=== PATIENT | female | born 1970 | race Caucasian/White ===

== ENCOUNTER 2016-09-15 11:52 | Day surgery (SDC) | payer BC ==
[~2016-09-15] VITALS: Ht 162.6 cm; Wt 97.8 kg
[~2016-09-15 11:52] MED LIST: HYDR-762 PO; ONDA4TAB35 PO; RTPRO5
[2016-09-15 12:47] VITALS: Ht 162.6 cm; Wt 97.8 kg
[2016-09-15] MEDS ORDERED: LORA10CA PO (13:00)
[2016-09-15] MEDS ORDERED: FLUT9.9S NASAL (13:00)
[2016-09-15] MEDS ORDERED: MIDAZOLAM 1 MG/ML 2 ML INJ ONE (13:11)
[2016-09-15] MEDS ORDERED: PROPOFOL 40 ML ONE (13:11)
[2016-09-15] MEDS ORDERED: LIDOCAINE 2% (SDV) 5 ML INJ ONE (13:11)
[2016-09-15 13:25] VITALS: BP 128/83; PULSE 83; RESP 12
[2016-09-15 14:35] VITALS: BP 123/60; PULSE 76; RESP 12
--- NOTE | 2016-09-21 08:37 | CONS ---
DATE OF ADMISSION: 09/15/2016 DATE OF CONSULTATION: TYPE OF CONSULTATION: Preoperative gastroenterology. Dear Dr. Greenwood, I thank you very much for this kind referral. HISTORY OF PRESENT ILLNESS: Ms. Greer Andrade is a 45-year-old female patient who has been referr ed to me for further evaluation of rectal bleeding. The patient has history of colon polyps. Her a ppetite has been good, and she is not losing any weight. The patient also complains of upper abdomi nal pain and chronic heartburn not responding to therapy. There is no past history of peptic ulcer disease. She is not taking any nonsteroidal anti-inflammatory agents. She is status post cholecyst ectomy. She does not have any fever, chills or jaundice. There is no history of liver disease. Sh jose a is not a hypertensive or diabetic. She does not have any heart disease. She has history of bronc hial asthma. SOCIAL HISTORY: She is a nonsmoker. She does not abuse alcohol. FAMILY HISTORY: Negative for gastrointestinal tract neoplasm. ALLERGIES: THERE IS NO HISTORY OF SIGNIFICANT DRUG ALLERGY. MEDICATION: Albuterol inhaler. PHYSICAL EXAMINATION: GENERAL: She is 5 feet 4 inches tall, and she weighs 215 pounds. HEART: Normal first and second heart sounds. LUNGS: Clear. ABDOMEN: Soft without any distention. Liver and spleen are not palpable. There are no masses. Th ere is no focal tenderness. Normal bowel sounds are heard. CENTRAL NERVOUS SYSTEM: Examination does not reveal any focal neurological deficit. IMPRESSION: 1. Rectal bleeding. 2. History of colon polyp. 3. Upper abdominal pain and chronic heartburn not responding to therapy. 4. Bronchial asthma. 5. Status post cholecystectomy. 6. Obesity. PLAN: Endoscopy and colonoscopy for further evaluation. Because of the obesity with a short, thick neck, she needs monitored anesthesia care for the procedu res. The procedures and possible complications are well explained to the patient. She understands and co nsents to the procedures. I thank you once again. With warmest personal regards, Dictated By: COLTON THOMPSON/PARMJIT Conf#: [id number] DID#: [id number]
--- NOTE | 2016-09-21 14:17 | GILP ---
DATE OF PROCEDURE: PROCEDURES: 1. Esophagogastroduodenoscopy and biopsy. 2. Colonoscopy. SURGEON: Adri Phipps MD. PREOPERATIVE DIAGNOSES: 1. Abdominal pain. 2. Chronic heartburn. 3. Rectal bleeding. 4. History of colon polyps. POSTOP DIAGNOSES: 1. Hiatal hernia. 2. Gastroesophageal reflux disease. 3. Gastritis with erosions. 4. Gastric mucosal biopsies were taken for H. pylori test. 5. Colonoscopy all the way to the cecum. 6. Internal hemorrhoids. 7. No colitis or neoplasm was identified. INDICATION: Ms. Greer Andrade is a 45-year-old female patient who had upper abdominal pain and chronic heartburn not responding to therapy. She also had rectal bleeding and history of colon polyps. The patient was scheduled for endoscopy and colonoscopy for further evaluation. The procedures and possible complications were well explained to the patient. The patient understood and consented to the procedures. DESCRIPTION OF PROCEDURE: Under influence of anesthesia, the gastroscope was carefully introduced into the esophagus. Under direct vision, it was advanced to the stomach into the pylorus into the duodenal bulb, descending duodenum. Findings of esophagus: The patient had a hiatal hernia and gastroesophageal reflux disease. Stomach: She had gastritis with erosions. Gastric mucosal biopsies were taken for H. pylori test. Duodenum was normal. The colonoscope was carefully introduced in the rectum. Under direct vision, it was advanced all the way to the cecum. Findings: The patient had internal hemorrhoids. No colitis or neoplasm was identified. She tolerated the procedures very well. There were no complications from the procedures. At the end of procedure, she was awake with stable vital signs, and she was discharged home in the care of her family. IMPRESSION: Please see postop diagnoses. PLAN: 1. Nexium 24 hours p.o. q.a.m. 2. Anusol HC 2.5 percent cream q.h.s. 3. Await H. pylori test report. Dictated By: MD DONNA Phipps/francisco [email or web address]/ifeanyi /Document#: [id number]
== END 2016-09-15 17:30 | disposition home or self-care (01) ==
LOC: GIL 11:52
PROVIDERS: ATTEND Internal Medicine Gastroenterology
DX: K21.9 Gastro-esophageal reflux disease without esophagitis (principal); K44.9 Diaphragmatic hernia without obstruction or gangrene; K29.70 Gastritis, unspecified, without bleeding; K64.8 Other hemorrhoids; K62.5 Hemorrhage of anus and rectum; Z86.010 Personal history of colon polyps; J45.909 Unspecified asthma, uncomplicated; Z90.49 Acquired absence of other specified parts of digestive tract; E66.9 Obesity, unspecified; Z68.37 Body mass index [BMI] 37.0-37.9, adult
CPT/HCPCS: 43239; 45378; 87081; J2250; Z7610